=== PATIENT | male | born 1960 | race Caucasian/White ===

== ENCOUNTER → 2020-10-22 | Outpatient (CLI) | payer MEDICARE ==
[~2020-10-22] MED LIST: ACIDOPHILUS1 EAC4 PO; ACIDOPHILUS1 EACH PO; APRISO0.375 GM PO; ASPIR 8181 MG PO; ATORVASTATIN CA10 MG PO; AZASAN100 MG PO; BETAPACE 80MG T80 MG PO; CORDARONE 200M200 MG PO; COZAAR 25MG TAB25 MG PO; COZAAR25 MG PO; CYMBALTA30 MG PO; DELZICOL PO; DIPHENOXYLATE-1 EACH PO; FERROUS SULFAT325 M2 PO; FERROUS SULFAT325 MG PO; GABAPENTIN400 MG PO; HYDROXYZINE HCL10 MG PO; IMDUR ER TAB 3030 MG PO; ISOSORBIDE MONO30 MG PO; K-DUR TAB 10 M10 MEQ PO; LASIX 40 MG TAB40 MG PO; LASIX40 MG PO; LEVEMIR FL100 UNIT/1 SQ; LEVEMIR100 UNIT/1 SQ; LIPITOR TAB 1010 MG PO; LIPITOR TAB 2020 MG PO; LOMOTIL 2.5-0.1 EACH PO; LOPRESSOR 25 MG25 MG PO; LOPRESSOR 50 MG50 MG PO; LOPRESSOR100 MG PO; MIRAPEX0.5 MG PO; MIRAPEX1 MG PO; MULTIVITAMIN1 EACH PO; NEURONTIN 400400 MG PO; NORCO 10-325 T1 EACH PO; NORVASC 5 MG TAB5 MG PO; NOVOLOG FL100 UNIT/1 SQ; OXYCONTIN20 MG PO; OZEMPIC0.25 MG/0. SQ; PRAMIPEXOLE DIHY1 MG PO; PREDNISONE5 MG PO; RANITIDINE HCL150 M1 PO; REQUIP2 MG PO; ROCEPHIN 2 GM AD2 GM IV; ROPINIROLE HCL2 MG PO; TIZANIDINE HCL2 MG PO; TOPROL XL25 MG PO; TRESIBA FL100 UNIT/1 SQ; TRESIBA FLEX PEN SQ; TRULICITY1.5 MG/0.5 SQ; VANCOMYCIN HCL125 MG PO; XARELTO20 MG PO; ZANAFLEX 4 MG TA4 MG PO; ZANTAC 150 MG150 MG PO; [UNRECOGNIZED DRUG - OTHER] PO
== END ==
LOC: CT 15:00
DX: Z01.818 Encounter for other preprocedural examination (principal); L03.90 Cellulitis, unspecified
CPT/HCPCS: 70480; 82565; 84520

== ENCOUNTER → 2020-12-22 | Outpatient (CLI) | payer MEDICARE ==
[~2020-12-22] MED LIST changes: +AMIODARONE HCL200 MG PO; +CEFTRIAXONE1 GM INJ; +DOXYCYCLINE HY100 MG PO; +FUROSEMIDE20 MG PO; +HUMALOG100 UNIT/1 SQ; +LOPERAMIDE2 M1 PO; +METOPROLOL TART50 MG PO; +NS IV; +PROZAC 20 MG CA20 MG PO; +TART CHERRY CA1 EACH PO; +VANCOCIN 250 M250 MG PO; +VANCOMYCIN1 GM/2002 IV
== END ==
LOC: NM 09:55
DX: L03.115 Cellulitis of right lower limb (principal); E11.9 Type 2 diabetes mellitus without complications
CPT/HCPCS: 73630; 78315; A9503

== ENCOUNTER 2021-01-20 16:13 | Inpatient (IN) | payer MEDICARE ==
[~2021-01-20] VITALS: Ht 182.9 cm; Wt 142.6 kg
[~2021-01-20 16:13] MED LIST changes: -AMIODARONE HCL200 MG PO; -CEFTRIAXONE1 GM INJ; -DOXYCYCLINE HY100 MG PO; -FUROSEMIDE20 MG PO; -HUMALOG100 UNIT/1 SQ; -LOPERAMIDE2 M1 PO; -METOPROLOL TART50 MG PO; -NS IV; -PROZAC 20 MG CA20 MG PO; -TART CHERRY CA1 EACH PO; -VANCOCIN 250 M250 MG PO; -VANCOMYCIN1 GM/2002 IV; -XARELTO20 MG PO
[2021-01-20 16:51] LABS: CAMPYLOBACTER Not Detected (Negative); PLESIOMONAS SHIGELLOIDES Not Detected (Negative); SALMONELLA Not Detected (Negative); VIBRIO Not Detected (Negative)
[2021-01-20 16:52] LABS: ADENOVIRUS F 40/41 Not Detected (Negative); ASTROVIRUS Not Detected (Negative); CRYPTOSPORIDIUM Not Detected (Negative); E.COLI 0157 Not Detected (Negative); ENTAMOEBA HISTOLYTICA Not Detected (Negative); ENTEROAGGREGATIVE E.COLI (EAEC Not Detected (Negative); ENTEROPATHOGENIC E.COLI (EPEC) Not Detected (Negative); ENTEROTOXIGENIC E.COLI (ETEC) Not Detected (Negative); GIARDIA LAMBLIA Not Detected (Negative); NOROVIRUS GI/GII Not Detected (Negative); ROTOVIRUS A Not Detected (Negative); SAPOVIRUS Not Detected (Negative); SHIG/ENTEROINVAS.ECOLI (EIEC) Not Detected (Negative); SHIGA-LIK TOX.PRO.E.COLI (STEC Not Detected (Negative); VIBRIO CHOLERAE Not Detected (Negative); YERSINIA ENTEROCOLITICA Not Detected (Negative)
[2021-01-20 16:58] LABS: HEMOGLOBIN 8.7 gm/dl (14.0-17.5); RED BLOOD COUNT 3.52 M/UL (4.20-5.50); WHITE BLOOD COUNT 26.4 K/UL (4.5-11.0)
[2021-01-20 21:57] LABS: CLOSTRIDIUM DIFFICILE TOX A/B DETECTED (Negative)
[2021-01-21 05:15] LABS: ACINETOBACTER BAUMANNII Not Detected (Negative); CANDIDA ALBICANS Not Detected (Negative); CANDIDA KRUSEI Not Detected (Negative); CANDIDA TROPICALIS Not Detected (Negative); ENTEROCOCCUS Not Detected (Negative); ESCHERICHIA COLI Not Detected (Negative); HAEMOPHILUS INFLUENZAE Not Detected (Negative); KLEBSIELLA OXYTOCA Not Detected (Negative); KLEBSIELLA PNEUMONIAE Not Detected (Negative); KPC-CARBAPENEM-RESISTANCE GENE Not Detected (Negative); PROTEUS Not Detected (Negative); PSEUDOMONAS AERUGINOSA Not Detected (Negative); SERRATIA MARCESANS Not Detected (Negative); STAPHYLOCOCCUS Not Detected (Negative); STAPHYLOCOCCUS AUREUS Not Detected (Negative); STREP PYOGENES (GROUP A) Not Detected (Negative); mecA (METHICILLIN RESIST GENE Not Detected (Negative); vanA/B (VANCOMYCIN RESIST GENE Not Detected (Negative)
[2021-01-21 05:16] LABS: STREP AGALACTIAE (GROUP B) DETECTED (Negative); STREPTOCOCCUS DETECTED (Negative)
[2021-01-21 07:09] LABS: HEMOGLOBIN 9.4 gm/dl (14.0-17.5)
[2021-01-21 07:42] LABS: WHITE BLOOD COUNT 31.3 K/UL (4.5-11.0)
[2021-01-21] MEDS ORDERED: AMIODARONE HCL200 MG PO (12:21)
[2021-01-21] MEDS ORDERED: DOXYCYCLINE HY100 MG PO (12:24)
[2021-01-21] MEDS ORDERED: ROPINIROLE HCL2 MG PO (12:24)
[2021-01-21] MEDS ORDERED: FUROSEMIDE20 MG PO (12:25)
[2021-01-21] MEDS ORDERED: LIPITOR TAB 2020 MG PO (12:25)
[2021-01-21] MEDS ORDERED: PROZAC 20 MG CA20 MG PO (12:26)
[2021-01-21] MEDS ORDERED: METOPROLOL TART50 MG PO (12:26)
[2021-01-21] MEDS ORDERED: GABAPENTIN400 MG PO (12:27)
[2021-01-21] MEDS ORDERED: TIZANIDINE HCL2 MG PO (12:27)
[2021-01-21] MEDS ORDERED: LEVEMIR100 UNIT/1 SQ (12:29)
[2021-01-21] MEDS ORDERED: HUMALOG100 UNIT/1 SQ (12:29)
[2021-01-21] MEDS ORDERED: LOPERAMIDE2 M1 PO (12:30)
[2021-01-21] MEDS ORDERED: TART CHERRY CA1 EACH PO (12:30)
[2021-01-21] MEDS ORDERED: XARELTO20 MG PO (15:00)
[2021-01-22 04:19] LABS: HEMOGLOBIN 8.3 gm/dl (14.0-17.5)
[2021-01-22 05:43] LABS: RED BLOOD COUNT 3.45 M/UL (4.20-5.50); WHITE BLOOD COUNT 14.7 K/UL (4.5-11.0)
[2021-01-23 05:40] LABS: HEMOGLOBIN 7.5 gm/dl (14.0-17.5); WHITE BLOOD COUNT 14.7 K/UL (4.5-11.0)
[2021-01-23 05:41] LABS: RED BLOOD COUNT 3.09 M/UL (4.20-5.50)
[2021-01-23] MEDS ORDERED: VANCOMYCIN1 GM/2002 IV (11:22)
[2021-01-23] MEDS ORDERED: NS IV (11:22)
[2021-01-23] MEDS ORDERED: CEFTRIAXONE1 GM INJ (11:22)
[2021-01-23] MEDS ORDERED: VANCOCIN 250 M250 MG PO (11:22)
[2021-01-24 05:57] LABS: RED BLOOD COUNT 2.99 M/UL (4.20-5.50); WHITE BLOOD COUNT 14.7 K/UL (4.5-11.0)
[2021-01-24 06:00] LABS: HEMOGLOBIN 7.3 gm/dl (14.0-17.5)
[2021-01-25 05:55] LABS: RED BLOOD COUNT 2.7 M/UL (4.20-5.50); WHITE BLOOD COUNT 11.6 K/UL (4.5-11.0)
[2021-01-25 06:00] LABS: HEMOGLOBIN 6.4 gm/dl (14.0-17.5)
[2021-01-25 17:08] LABS: HEMOGLOBIN 8.2 gm/dl (14.0-17.5)
--- NOTE | 2021-01-25 18:36 | NUR ---
EMS HERE TO TAKE PT TO [facility] AT THIS TIME NOTED
== END 2021-01-25 18:42 | disposition short-term general hospital (02) | DRG 853 ==
LOC: ER1 16:13 → CCU 20:47 → CDU 20:47 → CCU 01-21 00:37 → M/S 01-24 16:11
PROVIDERS: Emergency Medicine; Internal Medicine; Internal Medicine Nephrology; ADMIT Internal Medicine
PROC: B24BZZZ Ultrasonography of Heart with Aorta (ICD-10-PCS; 2021-01-21)
PROC: 0JBQ0ZZ Excision of Right Foot Subcutaneous Tissue and Fascia, Open Approach (ICD-10-PCS; principal; 2021-01-22)
PROC: 0HBRXZZ Excision of Toe Nail, External Approach (ICD-10-PCS; 2021-01-22)
PROC: 0HBRXZZ Excision of Toe Nail, External Approach (ICD-10-PCS; 2021-01-22)
PROC: 0HBRXZZ Excision of Toe Nail, External Approach (ICD-10-PCS; 2021-01-22)
PROC: 0HBRXZZ Excision of Toe Nail, External Approach (ICD-10-PCS; 2021-01-22)
PROC: 0HBRXZZ Excision of Toe Nail, External Approach (ICD-10-PCS; 2021-01-22)
DX: A40.9 Streptococcal sepsis, unspecified (principal); R65.21 Severe sepsis with septic shock; J18.9 Pneumonia, unspecified organism; G93.41 Metabolic encephalopathy; L03.90 Cellulitis, unspecified; Z20.822 Contact with and (suspected) exposure to COVID-19; A04.72 Enterocolitis due to Clostridium difficile, not specified as recurrent; E87.2 Acidosis; E87.1 Hypo-osmolality and hyponatremia; I13.0 Hypertensive heart and chronic kidney disease with heart failure and stage 1 through stage 4 chronic kidney disease, or unspecified chronic kidney disease; I50.20 Unspecified systolic (congestive) heart failure; D62 Acute posthemorrhagic anemia; L97.419 Non-pressure chronic ulcer of right heel and midfoot with unspecified severity; E11.52 Type 2 diabetes mellitus with diabetic peripheral angiopathy with gangrene; K92.2 Gastrointestinal hemorrhage, unspecified; Z68.41 Body mass index [BMI] 40.0-44.9, adult; B35.1 Tinea unguium; E11.621 Type 2 diabetes mellitus with foot ulcer; E11.40 Type 2 diabetes mellitus with diabetic neuropathy, unspecified; I48.91 Unspecified atrial fibrillation; R31.9 Hematuria, unspecified; E11.22 Type 2 diabetes mellitus with diabetic chronic kidney disease; N18.9 Chronic kidney disease, unspecified; E83.51 Hypocalcemia; E83.42 Hypomagnesemia; D63.1 Anemia in chronic kidney disease; E66.01 Morbid (severe) obesity due to excess calories; Z96.698 Presence of other orthopedic joint implants; E86.0 Dehydration; Z95.0 Presence of cardiac pacemaker; Z93.3 Colostomy status; Z79.4 Long term (current) use of insulin; Z80.0 Family history of malignant neoplasm of digestive organs
CPT/HCPCS: ECHO; 36415; 36430; 36600; 51702; 70450; 71045; 71250; 73630; 73700; 80048; 80053; 80202; 81001; 82272; 82436; 82550; 82553; 82803; 82962; 83540; 83550; 83605; 83690; 83735; 83874; 83880; 84100; 84132; 84133; 84300; 84439; 84443; 84484; 84550; 85014; 85018; 85025; 85027; 85610; 85652; 85730; 86140; 86850; 86900; 86901; 86920; 87040; 87077; 87086; 87150; 87186; 87507; 89050; 93005; 93306; 93926; 94760; 96374; 96375; 96376; 99285; A6212; G0378; J0692; J0696; J0878; J2185; J3370; J3475; J7030; J7050; J7070; P9016; P9047; U0002

== ENCOUNTER → 2021-07-06 | Outpatient (CLI) | payer MEDICARE ==
[~2021-07-06] MED LIST changes: +AMIODARONE HCL200 MG PO; +CEFTRIAXONE1 GM INJ; +DOXYCYCLINE HY100 MG PO; +FUROSEMIDE20 MG PO; +HUMALOG100 UNIT/1 SQ; +LOPERAMIDE2 M1 PO; +METOPROLOL TART50 MG PO; +NS IV; +PROZAC 20 MG CA20 MG PO; +TART CHERRY CA1 EACH PO; +VANCOCIN 250 M250 MG PO; +VANCOMYCIN1 GM/2002 IV; +XARELTO20 MG PO
[2021-07-06 17:22] LABS: HEMOGLOBIN 8.8 gm/dl (14.0-17.5); RED BLOOD COUNT 3.43 M/UL (4.20-5.50); WHITE BLOOD COUNT 7.3 K/UL (4.5-11.0)
== END ==
LOC: RAD 16:30
PROVIDERS: Nurse Practitioner Family
DX: E11.621 Type 2 diabetes mellitus with foot ulcer (principal); E11.610 Type 2 diabetes mellitus with diabetic neuropathic arthropathy; M86.071 Acute hematogenous osteomyelitis, right ankle and foot; E66.01 Morbid (severe) obesity due to excess calories; I11.0 Hypertensive heart disease with heart failure; I50.9 Heart failure, unspecified; I25.10 Atherosclerotic heart disease of native coronary artery without angina pectoris; G47.30 Sleep apnea, unspecified; Z95.0 Presence of cardiac pacemaker
CPT/HCPCS: 36415; 71046; 80053; 85025; 85652; 86140

== ENCOUNTER → 2021-07-06 | Outpatient (CLI) | payer MEDICARE | LOC: WCC 08:33 | DX: E11.621 Type 2 diabetes mellitus with foot ulcer (principal); L97.516 Non-pressure chronic ulcer of other part of right foot with bone involvement without evidence of necrosis; L97.522 Non-pressure chronic ulcer of other part of left foot with fat layer exposed; I11.0 Hypertensive heart disease with heart failure; I50.9 Heart failure, unspecified; E11.42 Type 2 diabetes mellitus with diabetic polyneuropathy; E66.01 Morbid (severe) obesity due to excess calories; E11.610 Type 2 diabetes mellitus with diabetic neuropathic arthropathy; M86.071 Acute hematogenous osteomyelitis, right ankle and foot; E11.69 Type 2 diabetes mellitus with other specified complication; I25.10 Atherosclerotic heart disease of native coronary artery without angina pectoris; G47.30 Sleep apnea, unspecified; Z93.3 Colostomy status; Z79.84 Long term (current) use of oral hypoglycemic drugs; Z68.41 Body mass index [BMI] 40.0-44.9, adult | CPT/HCPCS: 87070; 87205 ==

== ENCOUNTER 2021-07-13 14:33 | Inpatient (IN) | payer MEDICARE, OTHER ==
[~2021-07-13] VITALS: Ht 185.4 cm; Wt 156.7 kg
[2021-07-13 15:12] LABS: HEMOGLOBIN 8.3 gm/dl (14.0-17.5); RED BLOOD COUNT 3.33 M/UL (4.20-5.50); WHITE BLOOD COUNT 5.4 K/UL (4.5-11.0)
[2021-07-14 04:05] LABS: HEMOGLOBIN 8.3 gm/dl (14.0-17.5); RED BLOOD COUNT 3.3 M/UL (4.20-5.50); WHITE BLOOD COUNT 6.1 K/UL (4.5-11.0)
[2021-07-14] MEDS ORDERED: TIZANIDINE HCL2 MG PO (11:03)
[2021-07-14] MEDS ORDERED: FINASTERIDE5 MG PO (11:04)
[2021-07-14] MEDS ORDERED: XARELTO15 MG PO (11:04)
[2021-07-14] MEDS ORDERED: ACIDOPHILUS PR1 EAC2 PO (11:05)
[2021-07-14] MEDS ORDERED: PRESERVISION A1 EAC2 PO (11:06)
[2021-07-14] MEDS ORDERED: METOPROLOL TART25 MG PO (11:06)
[2021-07-14] MEDS ORDERED: FLOMAX 0.4 MG0.4 MG PO (11:06)
[2021-07-14] MEDS ORDERED: MULTIVITAMIN1 EACH PO (11:07)
[2021-07-14 14:55] LABS: RED BLOOD COUNT 3.17 M/UL (4.20-5.50); WHITE BLOOD COUNT 6.6 K/UL (4.5-11.0)
[2021-07-15 07:11] LABS: HEMOGLOBIN 7.9 gm/dl (14.0-17.5); RED BLOOD COUNT 3.22 M/UL (4.20-5.50); WHITE BLOOD COUNT 5.4 K/UL (4.5-11.0)
--- NOTE | 2021-07-15 16:00 | NUR ---
pt arrived sitting up at the bedside, he denies needs or c/o at this time. callbell and phone in reach.
[2021-07-16 03:20] LABS: RED BLOOD COUNT 3.07 M/UL (4.20-5.50); WHITE BLOOD COUNT 5.2 K/UL (4.5-11.0)
[2021-07-16 12:25] LABS: ADENOVIRUS F 40/41 Not Detected (Negative); ASTROVIRUS Not Detected (Negative); CAMPYLOBACTER Not Detected (Negative); CRYPTOSPORIDIUM Not Detected (Negative); E.COLI 0157 Not Detected (Negative); ENTAMOEBA HISTOLYTICA Not Detected (Negative); ENTEROAGGREGATIVE E.COLI (EAEC Not Detected (Negative); ENTEROPATHOGENIC E.COLI (EPEC) Not Detected (Negative); ENTEROTOXIGENIC E.COLI (ETEC) Not Detected (Negative); GIARDIA LAMBLIA Not Detected (Negative); NOROVIRUS GI/GII Not Detected (Negative); PLESIOMONAS SHIGELLOIDES Not Detected (Negative); ROTOVIRUS A Not Detected (Negative); SALMONELLA Not Detected (Negative); SAPOVIRUS Not Detected (Negative); SHIG/ENTEROINVAS.ECOLI (EIEC) Not Detected (Negative); SHIGA-LIK TOX.PRO.E.COLI (STEC Not Detected (Negative); VIBRIO Not Detected (Negative); VIBRIO CHOLERAE Not Detected (Negative); YERSINIA ENTEROCOLITICA Not Detected (Negative)
[2021-07-17 06:38] LABS: HEMOGLOBIN 7.9 gm/dl (14.0-17.5); RED BLOOD COUNT 3.14 M/UL (4.20-5.50); WHITE BLOOD COUNT 5.8 K/UL (4.5-11.0)
[2021-07-18 05:27] LABS: HEMOGLOBIN 8.1 gm/dl (14.0-17.5); RED BLOOD COUNT 3.23 M/UL (4.20-5.50); WHITE BLOOD COUNT 7.1 K/UL (4.5-11.0)
[2021-07-19 04:21] LABS: HEMOGLOBIN 7.7 gm/dl (14.0-17.5); RED BLOOD COUNT 3.06 M/UL (4.20-5.50); WHITE BLOOD COUNT 6.5 K/UL (4.5-11.0)
[2021-07-19] MEDS ORDERED: GABAPENTIN400 MG PO (14:43)
[2021-07-19] MEDS ORDERED: BUMETANIDE1 MG PO (14:43)
[2021-07-19] MEDS ORDERED: DOXYCYCLINE HY100 MG PO (14:47)
[2021-07-20 07:11] LABS: ANTISTREPTOLYSIN O AB 624.1 IU/mL (0.0-200.0); COMPLEMENT C3, SERUM 91 mg/dL (82-167); COMPLEMENT C4, SERUM 10 mg/dL (12-38)
[2021-07-20 12:15] LABS: ANTI-CENTROMERE B ANTIBODIES <0.2 AI (0.0-0.9); ANTI-DNA (DS) AB QN 1 IU/mL (0-9); ANTI-JO-1 <0.2 AI (0.0-0.9); ANTICHROMATIN ANTIBODIES <0.2 AI (0.0-0.9); ANTIRIBOSOMAL P ANTIBODIES <0.2 AI (0.0-0.9); ANTISCLERODERMA-70 ANTIBODIES <0.2 AI (0.0-0.9); RNP ANTIBODIES <0.2 AI (0.0-0.9); SJOGREN'S ANTI-SS-A <0.2 AI (0.0-0.9); SJOGREN'S ANTI-SS-B <0.2 AI (0.0-0.9); SMITH ANTIBODIES <0.2 AI (0.0-0.9); SMITH/RNP ANTIBODIES <0.2 AI (0.0-0.9)
[2021-07-20 14:16] LABS: A/G RATIO 0.9 (0.7-1.7); ALBUMIN 3.3 g/dL (2.9-4.4); ALPHA-1-GLOBULIN 0.2 g/dL (0.0-0.4); ALPHA-2-GLOBULIN 0.5 g/dL (0.4-1.0); BETA GLOBULIN 0.8 g/dL (0.7-1.3); GAMMA GLOBULIN 2.2 g/dL (0.4-1.8); GLOBULIN, TOTAL 3.7 g/dL (2.2-3.9); M-SPIKE Not Observed g/dL (Not Observed)
[2021-07-20 17:10] LABS: ATYPICAL PANCA <1:20 titer (Neg:<1:20); CYTOPLASMIC (C-ANCA) <1:20 titer (Neg:<1:20); PERINUCLEAR (P-ANCA) <1:20 titer (Neg:<1:20)
[2021-07-21 17:09] LABS: M-SPIKE, % Not Observed % (Not Observed); PROTEIN,TOTAL,URINE 205.7 mg/dL (Not Estab.)
== END 2021-07-19 16:50 | disposition home health service (06) | DRG 682 ==
LOC: ER1 14:33 → CDU 20:28 → 3 EAST 07-14 10:58 → MED SURG 4 07-14 10:58 → 3 EAST 07-14 22:16 → MED SURG 4 07-15 14:50
PROVIDERS: Internal Medicine; Internal Medicine Nephrology; Physician Assistant; Physician Assistant Medical; ADMIT Internal Medicine
PROC: B24BZZZ Ultrasonography of Heart with Aorta (ICD-10-PCS; principal; 2021-07-18)
DX: N17.9 Acute kidney failure, unspecified (principal); I50.33 Acute on chronic diastolic (congestive) heart failure; I48.20 Chronic atrial fibrillation, unspecified; I13.0 Hypertensive heart and chronic kidney disease with heart failure and stage 1 through stage 4 chronic kidney disease, or unspecified chronic kidney disease; E87.2 Acidosis; M86.671 Other chronic osteomyelitis, right ankle and foot; Z68.42 Body mass index [BMI] 45.0-49.9, adult; E11.649 Type 2 diabetes mellitus with hypoglycemia without coma; E11.22 Type 2 diabetes mellitus with diabetic chronic kidney disease; Z20.822 Contact with and (suspected) exposure to COVID-19; E66.01 Morbid (severe) obesity due to excess calories; I25.10 Atherosclerotic heart disease of native coronary artery without angina pectoris; N18.30 Chronic kidney disease, stage 3 unspecified; F41.9 Anxiety disorder, unspecified; I49.5 Sick sinus syndrome; G47.33 Obstructive sleep apnea (adult) (pediatric); L97.519 Non-pressure chronic ulcer of other part of right foot with unspecified severity; N04.9 Nephrotic syndrome with unspecified morphologic changes; I87.2 Venous insufficiency (chronic) (peripheral); D64.9 Anemia, unspecified; E87.5 Hyperkalemia; Z95.1 Presence of aortocoronary bypass graft; Z86.73 Personal history of transient ischemic attack (TIA), and cerebral infarction without residual deficits; Z79.01 Long term (current) use of anticoagulants; Z95.0 Presence of cardiac pacemaker; Z98.890 Other specified postprocedural states; Z88.8 Allergy status to other drugs, medicaments and biological substances; Z83.3 Family history of diabetes mellitus; Z80.0 Family history of malignant neoplasm of digestive organs; Z93.3 Colostomy status; Z79.4 Long term (current) use of insulin
CPT/HCPCS: ECHO; 0240U; 36415; 36600; 71045; 71046; 73700; 80048; 80053; 80202; 81001; 82140; 82436; 82550; 82553; 82570; 82803; 82962; 83036; 83516; 83735; 83874; 83880; 84100; 84132; 84133; 84155; 84156; 84165; 84166; 84300; 84484; 85025; 85027; 85652; 86060; 86140; 86160; 86256; 87040; 87070; 87205; 87507; 93005; 93306; 93925; 94660; 94760; 96374; 96376; 99284; G0378; J0878; J1940; J2185; J3370; J7030; J7070; P9047

== ENCOUNTER 2021-07-22 04:39 | Inpatient (IN) | payer MEDICARE ==
[~2021-07-22] VITALS: Ht 185 cm; Wt 165.1 kg
[~2021-07-22 04:39] MED LIST changes: +ACIDOPHILUS PR1 EAC2 PO; +BUMETANIDE1 MG PO; +FINASTERIDE5 MG PO; +FLOMAX 0.4 MG0.4 MG PO; +METOPROLOL TART25 MG PO; +PRESERVISION A1 EAC2 PO; +XARELTO15 MG PO
[2021-07-22 05:06] LABS: HEMOGLOBIN 7.9 gm/dl (14.0-17.5); RED BLOOD COUNT 3.17 M/UL (4.20-5.50); WHITE BLOOD COUNT 9.7 K/UL (4.5-11.0)
[2021-07-23 07:09] LABS: HEMOGLOBIN 8.2 gm/dl (14.0-17.5); RED BLOOD COUNT 3.32 M/UL (4.20-5.50); WHITE BLOOD COUNT 8.7 K/UL (4.5-11.0)
[2021-07-24 03:47] LABS: HEMOGLOBIN 8.1 gm/dl (14.0-17.5); RED BLOOD COUNT 3.23 M/UL (4.20-5.50); WHITE BLOOD COUNT 8.3 K/UL (4.5-11.0)
--- NOTE | 2021-07-24 22:36 | NUR ---
AT 2157, PT MONITOR NOTED TO BE ALARMING UPON ENTERING PT ROOM PT NOTED TO HAVE O2 NC OFF, LAYING FLAT IN BED UNRESPONSIVE TO MANUAL STIMULATION HR 125 O2 SAT 55% WITH POOR PLETH. PT PLACED ON BIPAP AND REPOSITIONED. PRITI EDDY NOTIFIED ORDERED STAT ABG AND [facility]. AT 2205 PT HR 107 02 100% ON 100% BIPAP. PT CURRENTLY O2 SAT 99% ON 40% BIPAP, HR 92, BP 142-95, RR 20, PT AWAKE AND ANSWERING QUESTIONS.
[2021-07-25 04:33] LABS: HEMOGLOBIN 8.5 gm/dl (14.0-17.5); RED BLOOD COUNT 3.41 M/UL (4.20-5.50); WHITE BLOOD COUNT 8.4 K/UL (4.5-11.0)
--- NOTE | 2021-07-25 07:23 | NUR ---
0625 PT TELE MONITOR NOTED TO BE OFF UPON ENTERING THE ROOM PT NOTED TO HAVE OXYGEN OFF, ALL LEADS OFF, PT CYANOTIC, UNRESPONSIVE, NO PULSE, CODE BUTTON ACTIVATED AND CPR STARTED. REFER TO CODE BLUE DOCUMENTATION. ROSC OBTAINED AT 0645. PT SPOUSE NOTIFIED OF PT CONDITION. REPORT GIVEN AND PT TRANSFERRED TO ICU.
[2021-07-25 07:39] LABS: RED BLOOD COUNT 2.56 M/UL (4.20-5.50)
[2021-07-25 07:48] LABS: HEMOGLOBIN 6.5 gm/dl (14.0-17.5)
[2021-07-25 18:56] LABS: HEMOGLOBIN 7.3 gm/dl (14.0-17.5); WHITE BLOOD COUNT 7.3 K/UL (4.5-11.0)
[2021-07-25 18:58] LABS: RED BLOOD COUNT 2.9 M/UL (4.20-5.50)
[2021-07-26 05:39] LABS: HEMOGLOBIN 7.1 gm/dl (14.0-17.5); RED BLOOD COUNT 2.79 M/UL (4.20-5.50); WHITE BLOOD COUNT 6.8 K/UL (4.5-11.0)
[2021-07-26 13:12] LABS: COMPLEMENT C3, SERUM 90 mg/dL (82-167); COMPLEMENT C4, SERUM 11 mg/dL (12-38)
[2021-07-26 14:12] LABS: ANTI-DSDNA ANTIBODIES 1 IU/mL (0-9)
[2021-07-26 15:12] LABS: A/G RATIO 0.8 (0.7-1.7); ALBUMIN 3.1 g/dL (2.9-4.4); ALPHA-1-GLOBULIN 0.3 g/dL (0.0-0.4); ALPHA-2-GLOBULIN 0.6 g/dL (0.4-1.0); GAMMA GLOBULIN 2.3 g/dL (0.4-1.8); GLOBULIN, TOTAL 4.2 g/dL (2.2-3.9); IMMUNOGLOBULIN A, QN, SERUM 323 mg/dL (90-386); IMMUNOGLOBULIN G, QN, SERUM 2452 mg/dL (603-1613); IMMUNOGLOBULIN M, QN, SERUM 102 mg/dL (20-172); M-SPIKE Not Observed g/dL (Not Observed); PROTEIN, TOTAL, SERUM 7.3 g/dL (6.0-8.5)
[2021-07-27 05:41] LABS: HEMOGLOBIN 7.9 gm/dl (14.0-17.5); WHITE BLOOD COUNT 7.6 K/UL (4.5-11.0)
[2021-07-27 05:46] LABS: RED BLOOD COUNT 3.11 M/UL (4.20-5.50)
[2021-07-28 08:16] LABS: ANTIMYELOPEROXIDASE (MPO) ABS <9.0 U/mL (0.0-9.0); ANTIPROTEINASE 3 (PR-3) ABS <3.5 U/mL (0.0-3.5); ATYPICAL PANCA <1:20 titer (Neg:<1:20); PERINUCLEAR (P-ANCA) <1:20 titer (Neg:<1:20)
== END 2021-07-28 22:26 | disposition expired | DRG 208 ==
LOC: ER1 04:39 → CCU 08:20 → CDU 08:20 → PROG CARE 07-23 02:32 → CCU 07-25 07:09
PROVIDERS: Internal Medicine; Internal Medicine Nephrology; Internal Medicine Pulmonary Disease; Physician Assistant Medical; Student in an Organized Health Care Education/Training Program; ADMIT Internal Medicine
PROC: 5A09357 Assistance with Respiratory Ventilation, Less than 24 Consecutive Hours, Continuous Positive Airway Pressure (ICD-10-PCS; 2021-07-22)
PROC: 3E03329 Introduction of Other Anti-infective into Peripheral Vein, Percutaneous Approach (ICD-10-PCS; 2021-07-23)
PROC: 5A09357 Assistance with Respiratory Ventilation, Less than 24 Consecutive Hours, Continuous Positive Airway Pressure (ICD-10-PCS; 2021-07-24)
PROC: 5A0935A Assistance with Respiratory Ventilation, Less than 24 Consecutive Hours, High Flow/Velocity Cannula (ICD-10-PCS; 2021-07-24)
PROC: 5A09357 Assistance with Respiratory Ventilation, Less than 24 Consecutive Hours, Continuous Positive Airway Pressure (ICD-10-PCS; 2021-07-24)
PROC: 02HV33Z Insertion of Infusion Device into Superior Vena Cava, Percutaneous Approach (ICD-10-PCS; principal; 2021-07-25)
PROC: 03HY32Z Insertion of Monitoring Device into Upper Artery, Percutaneous Approach (ICD-10-PCS; 2021-07-25)
PROC: 4A133B1 Monitoring of Arterial Pressure, Peripheral, Percutaneous Approach (ICD-10-PCS; 2021-07-25)
PROC: 4A133J1 Monitoring of Arterial Pulse, Peripheral, Percutaneous Approach (ICD-10-PCS; 2021-07-25)
PROC: 5A12012 Performance of Cardiac Output, Single, Manual (ICD-10-PCS; 2021-07-25)
PROC: 5A2204Z Restoration of Cardiac Rhythm, Single (ICD-10-PCS; 2021-07-25)
PROC: 0BH17EZ Insertion of Endotracheal Airway into Trachea, Via Natural or Artificial Opening (ICD-10-PCS; 2021-07-25)
PROC: 5A1945Z Respiratory Ventilation, 24-96 Consecutive Hours (ICD-10-PCS; 2021-07-25)
PROC: 30233N1 Transfusion of Nonautologous Red Blood Cells into Peripheral Vein, Percutaneous Approach (ICD-10-PCS; 2021-07-25)
PROC: 3E043XZ Introduction of Vasopressor into Central Vein, Percutaneous Approach (ICD-10-PCS; 2021-07-25)
PROC: B24BZZZ Ultrasonography of Heart with Aorta (ICD-10-PCS; 2021-07-27)
DX: J96.01 Acute respiratory failure with hypoxia (principal); J18.9 Pneumonia, unspecified organism; J69.0 Pneumonitis due to inhalation of food and vomit; I50.33 Acute on chronic diastolic (congestive) heart failure; A41.9 Sepsis, unspecified organism; R65.21 Severe sepsis with septic shock; N17.9 Acute kidney failure, unspecified; I48.20 Chronic atrial fibrillation, unspecified; I13.0 Hypertensive heart and chronic kidney disease with heart failure and stage 1 through stage 4 chronic kidney disease, or unspecified chronic kidney disease; E87.4 Mixed disorder of acid-base balance; G93.1 Anoxic brain damage, not elsewhere classified; G93.49 Other encephalopathy; Z68.41 Body mass index [BMI] 40.0-44.9, adult; E87.3 Alkalosis; I67.82 Cerebral ischemia; Z66 Do not resuscitate; Z51.5 Encounter for palliative care; Z20.822 Contact with and (suspected) exposure to COVID-19; J96.02 Acute respiratory failure with hypercapnia; G25.3 Myoclonus; R57.0 Cardiogenic shock; E11.65 Type 2 diabetes mellitus with hyperglycemia; G89.29 Other chronic pain; D50.9 Iron deficiency anemia, unspecified; I49.01 Ventricular fibrillation; I25.10 Atherosclerotic heart disease of native coronary artery without angina pectoris; I46.8 Cardiac arrest due to other underlying condition; D63.1 Anemia in chronic kidney disease; E78.5 Hyperlipidemia, unspecified; F41.9 Anxiety disorder, unspecified; E66.01 Morbid (severe) obesity due to excess calories; E11.621 Type 2 diabetes mellitus with foot ulcer; L97.519 Non-pressure chronic ulcer of other part of right foot with unspecified severity; N18.9 Chronic kidney disease, unspecified; E87.5 Hyperkalemia; E11.22 Type 2 diabetes mellitus with diabetic chronic kidney disease; G47.33 Obstructive sleep apnea (adult) (pediatric); Z95.5 Presence of coronary angioplasty implant and graft; Z86.73 Personal history of transient ischemic attack (TIA), and cerebral infarction without residual deficits; Z79.01 Long term (current) use of anticoagulants; Z95.0 Presence of cardiac pacemaker; Z88.8 Allergy status to other drugs, medicaments and biological substances; Z79.899 Other long term (current) drug therapy; Z80.0 Family history of malignant neoplasm of digestive organs; Z83.3 Family history of diabetes mellitus; Z98.890 Other specified postprocedural states; Z90.49 Acquired absence of other specified parts of digestive tract; Z87.891 Personal history of nicotine dependence; Z91.19 Patient's noncompliance with other medical treatment and regimen; N28.89 Other specified disorders of kidney and ureter
CPT/HCPCS: ECHO; 31500; 36415; 36430; 36600; 70450; 71045; 71250; 80048; 80053; 80202; 82140; 82550; 82553; 82728; 82784; 82803; 82962; 83520; 83540; 83550; 83605; 83735; 84100; 84132; 84155; 84165; 84484; 85025; 85027; 85379; 86038; 86140; 86160; 86225; 86256; 86334; 86850; 86900; 86901; 86920; 87040; 87070; 87081; 87205; 92950; 93005; 93306; 94002; 94003; 94640; 94660; 94664; 94760; 95819; 99285; C9113; J0171; J0461; J0610; J1205; J1335; J1756; J1940; J1953; J2270; J2704; J3370; J3475; J7030; J7070; P9016; U0002